=== PATIENT | male | born 1945 | race Caucasian/White ===

== ENCOUNTER 2017-11-08 07:33 | Inpatient (IN) | payer MEDICARE, OTHER ==
[2017-11-08 07:46] VITALS: BMI 25.8
--- NOTE | 2017-11-08 08:08 | PDOC ---
History of Present Illness <Bette Recio - Last Filed: 11/08/17 11:13> - History of Present Illness Initial Comments: patient is a 72 year old male, with a significant past medical history of rheumatoid arthritis, BL toe amputations, who presents to the emergency department complaining of worsening pain in chronic R plantar foot ulcer. Pt poor historian, states foot ulcer began a few months ago. Recently seen at [facility] a few weeks ago due to worsening pain and drainage from ulcer , treated with "two IV antibiotics" and discharged with improvement in symptoms. Cultures were taken, however pt unaware of results. Pt states over the last few days has noted similar symptoms, worsening pain in R plantar surface of foot and drainage in his sneakers. Pt denies any other infectious or neuro symptoms. Has seen shucker at [facility] in past, however states he doesnt know who and hasn't seen them in over a year. Pt does not take any immunomodulator medication currently. No hx of diabetes or vascular dz. patient denies chest pain, shortness of breath, headache or dizziness. Denies fever, chills, nausea, vomiting, diarrhea and constipation. Denies dysuria, frequency, urgency and hematuria. Allergies: None Past surgical history: BL toe amputations Social History: Former smoker; Denies alcohol, drug use; pt is undomiciled, lives at a long-term PMD: Unknown, follows at [facility] 11/08/17 08:03 11/08/17 08:13 <Romero Norris - Last Filed: 11/08/17 14:24> - General Stated Complaint: INFECTED TOE Past History <Bette Recio - Last Filed: 11/08/17 11:13> - Past Medical History COPD: No - Suicide/Smoking/Psychosocial Hx Smoking History: Former smoker Have you smoked in the past 12 months: No Information on smoking cessation initiated: No Hx Alcohol Use: No Drug/Substance Use Hx: No Substance Use Type: None <Romero Norris - Last Filed: 11/08/17 14:24> - Past Medical History Allergies/Adverse Reactions: Allergies Allergy/AdvReac Type Severity Reaction Status Date / Time No Allergy Information Allergy Verified 11/08/17 07:46 Available Review of Systems - Review of Systems Comments:: GENERAL/CONSTITUTIONAL: No fever or chills. No weakness. HEAD, EYES, EARS, NOSE AND THROAT: No change in vision. No ear pain or discharge. No sore throat. CARDIOVASCULAR: No chest pain or shortness of breath RESPIRATORY: No cough, wheezing, or hemoptysis. GASTROINTESTINAL: No nausea, vomiting, diarrhea or constipation. GENITOURINARY: No dysuria, frequency, or change in urination. MUSCULOSKELETAL: Pain in feet BL due to RA. Worsening pain in R sole of foot. No muscle swelling or pain. No neck or back pain. SKIN: No rash; ulcer in R foot NEUROLOGIC: No headache, vertigo, loss of consciousness, or change in strength/ sensation. ENDOCRINE: No increased thirst. No abnormal weight change HEMATOLOGIC/LYMPHATIC: No anemia, easy bleeding, or history of blood clots. ALLERGIC/IMMUNOLOGIC: No hives or skin allergy. 11/08/17 08:08 <Romero Norris - Last Filed: 11/08/17 14:24> *Physical Exam - Vital Signs Last Vital Signs Temp Pulse Resp BP Pulse Ox 97.4 F L 76 20 134/75 100 11/08/17 07:42 11/08/17 07:42 11/08/17 07:42 11/08/17 07:42 11/08/17 07:42 <Bette Recio - Last Filed: 11/08/17 11:13> - Vital Signs Last Vital Signs Temp Pulse Resp BP Pulse Ox 97.4 F L 76 20 134/75 100 11/08/17 07:42 11/08/17 07:42 11/08/17 07:42 11/08/17 07:42 11/08/17 07:42 - Physical Exam Comments: GENERAL: Elderly man, Awake, alert, and fully oriented, in no acute distress HEAD: No signs of trauma, normocephalic, atraumatic EYES: PERRLA, EOMI, sclera anicteric, conjunctiva clear ENT: Poor dentition. No oral lesions. Auricles normal inspection, hearing grossly normal, nares patent, oropharynx clear without exudates. Moist mucosa NECK: Normal ROM, supple, no lymphadenopathy, JVD, or masses LUNGS: Upper airway wheezing, mild diffuse rhonchi. No distress, speaks full sentences. HEART: Regular rate and rhythm, normal S1 and S2, no murmurs, rubs or gallops, peripheral pulses normal and equal bilaterally. ABDOMEN: Soft, nontender, normoactive bowel sounds. No guarding, no rebound. No masses EXTREMITIES : R 3x4cm plantar foot ulcer with no noted drainage or purulence, trace marginal erythema, TTP at medial margin. BL pain in plantar surfaces of feet. Complete toe amputation BL. Good pulses, no edema, preserved sensation. NEUROLOGICAL: Cranial nerves II through XII grossly intact. Normal speech, no focal sensorimotor deficits SKIN: Warm, Dry, normal turgor; 11/08/17 08:09 <Romero Norris - Last Filed: 11/08/17 14:24> ED Treatment Course - LABORATORY CBC & Chemistry Diagram: 11/08/17 08:52 11/08/17 09:34 - ADDITIONAL ORDERS Additional order review: Laboratory Results 11/08/17 11/08/17 11/08/17 09:50 09:34 08:52 Sodium 138 Cancelled Potassium 4.2 Cancelled Chloride 103 Cancelled Carbon Dioxide 32 Cancelled Anion Gap 3 L Cancelled BUN 18 Cancelled Creatinine 0.6 L Cancelled Creat Clearance w eGFR > 60 Cancelled Random Glucose 81 Cancelled Calcium 7.8 L Cancelled Total Bilirubin 0.6 Cancelled AST 11 L Cancelled ALT 12 Cancelled Alkaline Phosphatase 67 Cancelled C-Reactive Protein 6.5 H Cancelled Total Protein 6.3 L Cancelled Albumin 3.0 L Cancelled 11/08/17 08:52 RBC 3.94 L MCV 90.7 MCHC 33.7 RDW 14.6 MPV 9.8 Neutrophils % No Result Required. Lymphocytes % No Result Required. - RADIOLOGY Radiology Studies Ordered: Category Date Time Status CHEST PA & LAT [RAD] Stat Radiology 11/08/17 08:34 Completed FOOT-RIGHT [RAD] Stat Radiology 11/08/17 08:34 Completed - Medications Given in the ED: ED Medications Discontinued Medications Generic Name Dose Route Start Last Admin Trade Name Freq PRN Reason Stop Dose Admin Piperacillin Sod/Tazobactam 50 mls @ 100 mls/hr 11/08/17 10:28 11/08/17 11:07 Sod 3.375 gm/ Dextrose IVPB 11/08/17 10:57 100 mls/hr ONCE ONE Administration Protocol <Bette Recio - Last Filed: 11/08/17 11:13> - LABORATORY CBC & Chemistry Diagram: 11/08/17 08:52 11/08/17 09:34 <Romero Norris - Last Filed: 11/08/17 14:24> Medical Decision Making - Medical Decision Making 72 year old male, with a significant past medical history of rheumatoid arthritis, BL toe amputations, who presents to the emergency department complaining of worsening pain in chronic R plantar foot ulcer. Pt no risk factors for poor wound healing. No fever or marked purulence/drainage from ulcer site. Ordered for CXR, foot XR, CBC, CMP, ESR, CRP. Pt CXR with suspicious infiltrate. Will send for cultures, lactate and empiric abx for HCAP. Will admit to hospitalist group. 11/08/17 10:29 <Romero Norris - Last Filed: 11/08/17 14:24> *DC/Admit/Observation/Transfer - Discharge Dispostion Decision to Admit order: Yes <Bette Recio - Last Filed: 11/08/17 11:13> - Discharge Dispostion Decision to Admit order: Yes <Romero Norris - Last Filed: 11/08/17 14:24> Diagnosis at time of Disposition: Foot ulcer, right Qualifiers: Non-pressure ulcer stage: limited to breakdown of skin Qualified Code(s): L97.511 - Non-pressure chronic ulcer of other part of right foot limited to breakdown of skin Pneumonia Qualifiers: Pneumonia type: due to unspecified organism Laterality: left Lung location: lower lobe of lung Qualified Code(s): J18.1 - Lobar pneumonia, unspecified organism - Discharge Dispostion Condition at time of disposition: Fair
--- NOTE | 2017-11-08 08:44 | PDOC ---
Attending Attestation - Resident Resident Name: Romero Norris - ED Attending Attestation I have performed the following: I have examined & evaluated the patient, The case was reviewed & discussed with the resident, I agree w/resident's findings & plan, Exceptions are as noted - Medical Decision Making 11/08/17 08:41 72 yo M with h/o RA, chronic right foot ulcer, bilat toe amputations here c/o worsening right foot pain, no drainage. no f/c on exam right foot with plantar ulcer 4 x 2 clean base, no drainage. no erythema. 2 + dp/ pt pulses. bilat wheeze bilat. plan neb. cxr r/o pna, xray foot, labs. reassess. . <Bette Recio - Last Filed: 11/08/17 08:40> - HPI HPI: 11/08/17 09:25 The patient is a 72 year old male, with a significant past medical history of rheumatoid arthritis, BL toe amputations, who presents to the emergency department complaining of a right foot ulcer for the past few months. He notes that he has been worked up at [facility] in regards to the wound, for which he received antibiotics and was discharged after improvement of symptoms. 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 The patient denies chest pain, shortness of breath, headache or dizziness. Denies fever, chills, nausea, vomiting, diarrhea and constipation. Denies dysuria, frequency, urgency and hematuria. Allergies: None reported Past surgical history: BIlateral toe amputation Social History: Former smoker. - Physicial Exam PE: 11/08/17 09:25 GENERAL: Awake, alert, and fully oriented, in no acute distress HEAD: No signs of trauma EYES: PERRLA, EOMI, sclera anicteric, conjunctiva clear ENT: Auricles normal inspection, nares patent. Moist mucosa NECK: Normal ROM, supple, no JVD, or masses LUNGS: (+) Roncherous and wheezing breath sounds. HEART: Regular rate and rhythm, normal S1 and S2, no murmurs, rubs or gallops ABDOMEN: Soft, nontender, normoactive bowel sounds. No guarding, no rebound. No masses EXTREMITIES: (+) Bilateral complete toe amputation. 2+ DP anf TP pulses. Normal range of motion, no edema. No clubbing or cyanosis. No cords, erythema, or tenderness NEUROLOGICAL: Alert and oriented x 3. Moves all extremities. Face is symmetric. SKIN: (+) 2cm by 1cm open wound on the plantar surface of right foot. No erythema or oozing. <Jimmie Gonzales - Last Filed: 11/08/17 09:26>
[2017-11-08 09:16] LABS: HEMATOCRIT 35.7 % (35.4-49); HEMOGLOBIN 12.1 GM/dL (11.7-16.9); MCH 30.6 pg (25.7-33.7); MCHC 33.7 g/dl (32.0-35.9); MEAN CELL VOLUME 90.7 fl (80-96); MEAN PLT VOLUME 9.8 fl (7.5-11.1); PLATELET COUNT 257 K/MM3 (134-434); RBC 3.94 M/mm3 (4.00-5.60); RDW 14.6 % (11.9-15.9); WHITE BLOOD COUNT 9.4 K/mm3 (4.0-10.0)
[2017-11-08] MEDS ORDERED: PIPERACILLIN/TAZOB 3.375 GM 3.375 GM in DEXTROSE 5%-WATER - 50 ML IVPB ONE (10:28)
[2017-11-08] MEDS ORDERED: VANCOMYCIN 1,000 MG in DEXTROSE 5%-WATER - 250 ML IVPB ONE (10:28)
[2017-11-08 10:32] LABS: ALK PHOS 67 U/L (45-117); ANION GAP 3 (8-16); BILIRUBIN,TOTAL 0.6 mg/dL (0.2-1.0); BLOOD UREA NITROGEN 18 mg/dL (7-18); CALCIUM 7.8 mg/dL (8.5-10.1); CHLORIDE 103 mmol/L (98-107); CO2 32 mmol/L (21-32); CREATININE 0.6 mg/dL (0.7-1.3); GLUCOSE,RANDOM 81 mg/dL (74-106); POTASSIUM 4.2 mmol/L (3.5-5.1); SGOT/AST 11 U/L (15-37); SGPT/ALT 12 U/L (12-78); SODIUM 138 mmol/L (136-145); TOT PROT 6.3 g/dl (6.4-8.2)
[2017-11-08] MEDS ORDERED: VANCOMYCIN 1 GRAM (PRE-DOCKED) 1,000 MG/250 ML BAG IVPB ONE (10:35)
[2017-11-08 11:07] LABS: ACANTHOCYTES 0; ANISOCYTOSIS 0; HELMET CELLS 0; HOWELL-JOLLY BODIES 0; MACROCYTOSIS 0; OVALOCYTE 0; PLATELET ESTIMATE NORMAL; ROULEAU 0; SICKELED CELLS 0; TARGET CELLS 0; TEAR DROP CELLS 0; TOXIC GRANULATION 0
--- NOTE | 2017-11-08 13:54 | CON.ID ---
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 Pt states his feet always hurt and he usually takes Tylenol 500mg TID for pain but [facility] in a [facility] [place] [facility]. Per ED record, pt was seen and treated at [facility] a few weeks ago, he was on abx and then discharged. He denies sob, fever, chills, n/v, cp, abdominal pain, DM hx and does not see anyone regularly for his wound. currently he mentions that he has been having lot of pain in the foot podiatry going to see the patient - History Source History Provided By: Patient, Medical Record Limitations to Obtaining History: Poor Historian - Alcohol/Substance Use Hx Alcohol Use: No - Smoking History Smoking history: Former smoker Have you smoked in the past 12 months: No Home Medications - Allergies Allergies/Adverse Reactions: Allergies Allergy/AdvReac Type Severity Reaction Status Date / Time Fish Containing Products Allergy Unknown Vomiting Verified 11/08/17 14:45 fish AdvReac Intermediate Vomiting Uncoded 11/08/17 14:45 Review of Systems - Review of Systems Constitutional: reports: No Symptoms Eyes: reports: No Symptoms HENT: reports: No Symptoms Neck: reports: No Symptoms Cardiovascular: reports: No Symptoms Respiratory: reports: No Symptoms Gastrointestinal: reports: No Symptoms Musculoskeletal: reports: No Symptoms Integumentary: reports: No Symptoms Neurological: reports: No Symptoms Endocrine: reports: No Symptoms Hematology/Lymphatic: reports: No Symptoms Psychiatric: reports: No Symptoms Physical Exam Vital Signs: Vital Signs Temperature 97.6 F 11/08/17 12:07 Pulse Rate 58 L 11/08/17 12:07 Respiratory Rate 16 11/08/17 12:07 Blood Pressure 115/54 11/08/17 12:07 O2 Sat by Pulse Oximetry (%) 98 11/08/17 12:07 Constitutional: Yes: Well Nourished, Calm, Mild Distress Eyes: Yes: Conjunctiva Clear HENT: Yes: Atraumatic, Normocephalic Neck: Yes: Supple Cardiovascular: Yes: Regular Rate and Rhythm Respiratory: Yes: Regular, Other (crackles) Gastrointestinal: Yes: Normal Bowel Sounds, Soft Musculoskeletal: Yes: WNL Extremities: Yes: WNL Wound/Incision: Yes: Open to air, Other (+) 2cm by 1cm open wound on the plantar surface of right foot. No erythema or oozing.) Neurological: Yes: Alert, Oriented Psychiatric: Yes: Alert, Oriented Labs: CBC, BMP 11/08/17 08:52 11/08/17 09:34 Imaging - Results Chest X-ray: Report Reviewed, Image Reviewed X-ray: Report Reviewed, Image Reviewed Assessment/Plan non healing ulcer of the rt foot weakness pain patient s wound is relatively clean plan will continue abx for now will deescalate to po in day or so await for podiatry final plan rest as per the team
[2017-11-08] MEDS ORDERED: HEPARIN NA (PORCINE) 5,000 UNITS/ML 1ML VIAL SQ SCH (14:00)
--- NOTE | 2017-11-08 14:11 | HP ---
Admitting History and Physical - Admission Chief Complaint: pain History of Present Illness: This is a 72 year old male with pmhx of RA, bilateral complete toe amputation, bronchitis, hard of hearing and legally blind, presented to the ED with increased pain to his chronic R planter ulcer. Pt states his feet always hurt and he usually takes Tylenol 500mg TID for pain but [facility]'t [facility]. PT has been living in a homeless [facility]. Per ED record, pt was seen and treated at [facility] a few weeks ago, he was on abx and then discharged. He denies sob, fever, chills, n/v, cp, abdominal pain, DM hx and does not see anyone regularly for his wound. History Source: Patient Limitations to Obtaining History: No Limitations, Poor Historian - Past Medical History Rheumatology: Yes: Rheumatoid Arthritis - Past Surgical History Additional Past Surgical History: bilateral complete toes amputation - Smoking History Smoking history: Former smoker Have you smoked in the past 12 months: No - Alcohol/Substance Use Hx Alcohol Use: No - Social History ADL: Independent Home Medications - Allergies Allergies/Adverse Reactions: Allergies Allergy/AdvReac Type Severity Reaction Status Date / Time Fish Containing Products Allergy Unknown Vomiting Verified 11/08/17 14:45 fish AdvReac Intermediate Vomiting Uncoded 11/08/17 14:45 Review of Systems - Review of Systems Constitutional: reports: No Symptoms Eyes: reports: No Symptoms HENT: reports: No Symptoms Neck: reports: No Symptoms Cardiovascular: reports: No Symptoms Respiratory: reports: Cough Gastrointestinal: reports: No Symptoms Genitourinary: reports: No Symptoms Musculoskeletal: reports: No Symptoms Integumentary: reports: No Symptoms Neurological: reports: No Symptoms Endocrine: reports: No Symptoms Hematology/Lymphatic: reports: No Symptoms Psychiatric: reports: No Symptoms Physical Examination Vital Signs: Vital Signs Temperature 97.6 F 11/08/17 12:07 Pulse Rate 58 L 11/08/17 12:07 Respiratory Rate 16 11/08/17 12:07 Blood Pressure 115/54 11/08/17 12:07 O2 Sat by Pulse Oximetry (%) 98 11/08/17 12:07 Constitutional: Yes: No Distress Eyes: Yes: Conjunctiva Clear HENT: Yes: Other (poor dentition,) Cardiovascular: Yes: Regular Rate and Rhythm, S1, S2 Respiratory: Yes: Rhonchi, Other (left base rhonchi) Gastrointestinal: Yes: Normal Bowel Sounds, Soft Extremities: Yes: WNL Edema: Yes Edema: RLE: 1+ Peripheral Pulses WNL: Yes Integumentary: Yes: Other (R foot planter wound) Wound/Incision: Yes: Open to air Neurological: Yes: Alert, Oriented, Cran Nerves II-XII Intact, Other ...Motor Strength: WNL Psychiatric: Yes: Alert, Oriented Labs: CBC, BMP 11/08/17 08:52 11/08/17 09:34 Imaging - Results Chest X-ray: Report Reviewed (early left base infiltrate) X-ray: Report Reviewed Problem List - Problems (1) Foot ulcer, right Code(s): L97.519 - NON-PRS CHRONIC ULCER OTH PRT RIGHT FOOT W UNSP SEVERITY Qualifiers: Non-pressure ulcer stage: limited to breakdown of skin Qualified Code(s): L97.511 - Non-pressure chronic ulcer of other part of right foot limited to breakdown of skin (2) Pneumonia Code(s): J18.9 - PNEUMONIA, UNSPECIFIED ORGANISM Qualifiers: Pneumonia type: due to unspecified organism Laterality: left Lung location: lower lobe of lung Qualified Code(s): J18.1 - Lobar pneumonia, unspecified organism Assessment/Plan Assessment: 72 year old male with pmhx RA presented with worsening pain to R plantar ulcer and leg Plan: 1. Acute on chronic R planter wound infection - Increased pain and swelling - ESR and CRP elevated however pt w RA hx - Vanco zosyn given in ED - Started on Unysan - Podiatry consulted 2. HCAP - Unysan as above 3. RA - No home meds, takes tylenol 4. DVT - Heparin sq Visit type - Emergency Visit Emergency Visit: Yes ED Registration Date: 11/08/17 Care time: The patient presented to the Emergency Department on the above date and was hospitalized for further evaluation of their emergent condition. - New Patient This patient is new to me today: Yes Date on this admission: 11/08/17 - Critical Care Critical Care patient: No Hospitalist Screening - Colonoscopy Questionnaire Colonoscopy Questionnaire: Colonoscopy Questionnaire - Patient: 50 - 75 years old and never had a screening colonoscopy: Unknown History of colon or rectal polyps, or CA: Unknown History of IBD, Crohn's disease or UC: Unknown History of abdominal radiation therapy as a child: Unknown - Relative: 1 with colon or rectal CA, or polyps at age 60 or younger: Unknown Colon or rectal CA diagnosed at age 45 or younger: Unknown Multiple relatives with colon or rectal CA: Unknown - Outcome: Screening Result: Negative Screen
[2017-11-08] MEDS ORDERED: AMPICILLIN NA/SULBACTAM NA 3 GM in SODIUM CHLORIDE 100 ML IVPB SCH (14:15)
[2017-11-08] MEDS: HEPARIN NA (PORCINE) 5,000 UNITS/ML 1ML VIAL SQ SCH ×2 (15:07→21:54)
--- NOTE | 2017-11-08 16:52 | PN ---
Progress Note (short form) - Note Progress Note: PT presents for Podiatry Consult for right plantar wound PT was admitted to [facility] pain to both feet and pneumonia Presents for Podiatry consult for plantar wound to his right foot s/p TMA years ago Pt states was supposed to f/u with Podiatry and never did SUKUMAR: Palpable pedal pulses NVS decreased Wound to mid arch Superficial in nature Does not probe deep No undermining No signs of ascending cellulitis Negative adenopathy Tender on palpation TMA healed Impression: Ulcer right foot Neuropathy Plan: Will obtain xrays Local wound care Will follow Thank you for courtesy of this consult
--- NOTE | 2017-11-08 16:59 | PN ---
Progress Note (short form) - Note Progress Note: Addendum: Foot xrays depict of some blastic changes of metarasal Consider further diagnostic testing to assess for osteomyelits
[2017-11-08] MEDS ORDERED: PT OWN MED DRAWER 7, Y5N ONE (17:30)
[2017-11-08] MEDS: AMPICILLIN NA/SULBACTAM NA 3 GM in SODIUM CHLORIDE 100 ML IVPB SCH (18:00)
[2017-11-09] MEDS ORDERED: PT OWN MED DRAWER 7, Y5N ONE ×3 (01:14→17:48)
[2017-11-09] MEDS: AMPICILLIN NA/SULBACTAM NA 3 GM in SODIUM CHLORIDE 100 ML IVPB SCH ×3 (01:18→18:10)
[2017-11-09] MEDS: HEPARIN NA (PORCINE) 5,000 UNITS/ML 1ML VIAL SQ SCH ×3 (05:25→21:58)
[2017-11-09 07:48] LABS: BASO % 1.2 % (0-2.0); EOS % 3.1 % (0-4.5); HEMATOCRIT 40.3 % (35.4-49); HEMOGLOBIN 13.3 GM/dL (11.7-16.9); LYMPH % 21.4 % (8-40); MCH 30.1 pg (25.7-33.7); MEAN CELL VOLUME 91.1 fl (80-96); MEAN PLT VOLUME 9.3 fl (7.5-11.1); MONO % 12.3 % (3.8-10.2); PLATELET COUNT 293 K/MM3 (134-434); RBC 4.43 M/mm3 (4.00-5.60); RDW 14.9 % (11.9-15.9); WHITE BLOOD COUNT 8.2 K/mm3 (4.0-10.0)
[2017-11-09 08:31] LABS: ALBUMIN 3.1 g/dl (3.4-5.0); ANION GAP 6 (8-16); BLOOD UREA NITROGEN 15 mg/dL (7-18); CALCIUM 8.3 mg/dL (8.5-10.1); CHLORIDE 102 mmol/L (98-107); CO2 29 mmol/L (21-32); GLUCOSE,RANDOM 83 mg/dL (74-106); MAGNESIUM 2.7 mg/dL (1.8-2.4); POTASSIUM 4.2 mmol/L (3.5-5.1); SODIUM 137 mmol/L (136-145)
[2017-11-09 08:36] LABS: ALK PHOS 75 U/L (45-117); BILIRUBIN,TOTAL 0.8 mg/dL (0.2-1.0); CREATININE 0.7 mg/dL (0.7-1.3); PHOSPHOROUS 2.9 mg/dL (2.5-4.9); SGOT/AST 12 U/L (15-37); SGPT/ALT 13 U/L (12-78); TOT PROT 7.1 g/dl (6.4-8.2)
[2017-11-09] MEDS: ACETAMINOPHEN 325 MG TABLET (FP) PO PRN ×2 (11:05→18:17)
--- NOTE | 2017-11-09 11:17 | PN ---
Physical Exam: SUBJECTIVE: Patient seen and examined. Pt reports he is in pain, he wants tylenol, no sob or cough OBJECTIVE: Vital Signs Period Temp Pulse Resp BP Sys/Cancino Pulse Ox Last 24 Hr 97.2 F-98.6 F 55-72 16-20 100-129/54-71 98-98 PE Neuro: alert, awake, cn 2-12intact HEENT: TORRES MARTINEZ, poor dentition Pulm: L base rhonchi- improved CV: s1 s2 rrr no mrg Abd: s nt nd +bs Ext: R plantar wound slough, no mal odor, no erythema, RLE swelling improved Laboratory Results - last 24 hr 11/08/17 11/09/17 11/09/17 10:42 07:20 07:20 WBC 8.2 RBC 4.43 Hgb 13.3 Hct 40.3 MCV 91.1 MCH 30.1 MCHC 33.0 RDW 14.9 Plt Count 293 MPV 9.3 Neutrophils % 62.0 Lymphocytes % 21.4 Monocytes % 12.3 H Eosinophils % 3.1 Basophils % 1.2 Sodium 137 Potassium 4.2 Chloride 102 Carbon Dioxide 29 Anion Gap 6 L BUN 15 Creatinine 0.7 Creat Clearance w eGFR > 60 Random Glucose 83 Lactic Acid 1.3 Calcium 8.3 L Phosphorus 2.9 Magnesium 2.7 H Total Bilirubin 0.8 D AST 12 L ALT 13 Alkaline Phosphatase 75 Total Protein 7.1 Albumin 3.1 L Active Medications Generic Name Dose Route Start Last Admin Trade Name Freq PRN Reason Stop Dose Admin Acetaminophen 650 mg 11/08/17 16:23 11/09/17 11:05 Tylenol - PO 650 mg Q6H PRN Administration PAIN LEVEL 1-5 Heparin Sodium (Porcine) 5,000 unit 11/08/17 14:00 11/09/17 05:25 Heparin - SQ 5,000 unit TID ANNABELLA Administration Ampicillin Sodium/Sulbactam 100 mls @ 200 mls/hr 11/08/17 18:00 11/09/17 11: 05 Sodium 3 gm/ Sodium Chloride IVPB 200 mls/hr Q8H-IV ANNABELLA Administration Assessment: 72 year old male with pmhx RA presented with worsening pain to R plantar ulcer and leg Plan: 1. Acute on chronic R planter wound infection - No evidence of cellulitis - Continue Unysan - Local wound care per podiatry, obtain MRI r/o osteo - ID/podiatry following 2. HCAP - Unysan as above 3. RA - No home meds, takes tylenol 4. DVT - Heparin sq Problem List - Problems (1) Foot ulcer, right Code(s): L97.519 - NON-PRS CHRONIC ULCER OTH PRT RIGHT FOOT W UNSP SEVERITY Qualifiers: Non-pressure ulcer stage: limited to breakdown of skin Qualified Code(s): L97.511 - Non-pressure chronic ulcer of other part of right foot limited to breakdown of skin (2) Pneumonia Code(s): J18.9 - PNEUMONIA, UNSPECIFIED ORGANISM Qualifiers: Pneumonia type: due to unspecified organism Laterality: left Lung location: lower lobe of lung Qualified Code(s): J18.1 - Lobar pneumonia, unspecified organism Visit type - Emergency Visit Emergency Visit: Yes ED Registration Date: 11/08/17 Care time: The patient presented to the Emergency Department on the above date and was hospitalized for further evaluation of their emergent condition. - New Patient This patient is new to me today: No - Critical Care Critical Care patient: No
--- NOTE | 2017-11-09 11:35 | PN ---
Progress Note, Physician History of Present Illness: bernadette no issues podiatry wants mri pain main complaint - Current Medication List Current Medications: Active Medications Acetaminophen (Tylenol -) 650 mg PO Q6H PRN PRN Reason: PAIN LEVEL 1-5 Last Admin: 11/09/17 11:05 Dose: 650 mg Heparin Sodium (Porcine) (Heparin -) 5,000 unit SQ TID ANNABELLA Last Admin: 11/09/17 05:25 Dose: 5,000 unit Ampicillin Sodium/Sulbactam (Sodium 3 gm/ Sodium Chloride) 100 mls @ 200 mls/ hr IVPB Q8H-IV ANNABELLA Last Admin: 11/09/17 11:05 Dose: 200 mls/hr - Objective Vital Signs: Vital Signs Temperature 97.2 F L 11/09/17 05:50 Pulse Rate 55 L 11/09/17 05:50 Respiratory Rate 20 11/09/17 05:50 Blood Pressure 121/71 11/09/17 05:50 O2 Sat by Pulse Oximetry (%) 98 11/08/17 22:00 Constitutional: Yes: No Distress, Calm Cardiovascular: Yes: Regular Rate and Rhythm Respiratory: Yes: Regular, CTA Bilaterally Gastrointestinal: Yes: Normal Bowel Sounds, Soft Musculoskeletal: Yes: WNL Extremities: Yes: Other (amputation of toes on both legs non healing clean ulcer on the rt foot) Neurological: Yes: Alert, Oriented Psychiatric: Yes: Alert, Oriented Labs: CBC, BMP 11/09/17 07:20 11/09/17 07:20 Assessment/Plan non healing ulcer of the rt foot weakness pain patient s wound is relatively clean plan will continue abx for now will see what the mri shows then decide further plan rest continue current mgmt wound care
[2017-11-10] MEDS: ACETAMINOPHEN 325 MG TABLET (FP) PO PRN ×3 (00:15→19:21)
[2017-11-10] MEDS: AMPICILLIN NA/SULBACTAM NA 3 GM in SODIUM CHLORIDE 100 ML IVPB SCH ×2 (01:00→10:22)
[2017-11-10] MEDS: HEPARIN NA (PORCINE) 5,000 UNITS/ML 1ML VIAL SQ SCH ×3 (05:49→21:05)
[2017-11-10] MEDS ORDERED: PT OWN MED DRAWER 7, Y5N ONE (10:17)
--- NOTE | 2017-11-10 10:44 | PN ---
Progress Note (short form) - Note Progress Note: Podiatry F/U: Seen/evaluated at bedside, NAD. Pain improving with use of tylenol, denies F/V/ N/C/SOB/CP. Afebrile, VSS. SUKUMAR: R foot: pedal pulses palpable, TG wnl. There is a plantar arch chronic ulcer with mostly granular base, hyperkeratotic borders, mild fibrotic tissue, no deep probing, no exposed bone, no purulence, no fluctuance, no ascending cellulitis, no signs of active infection. Mild tenderness to palpation. WBC: 8.2 R foot XR: ?blastic changes first metatarsal R foot MRI: report pending Imp: 72 year old M with chronic R plantar arch ulcer 1. IV abx 2. MRI report pending 3. Local wound care. Rx santyl daily to R foot. 4. No surgical intervention. Patient would benefit quite well from f/u at wound healing center. Should come next 11/18/17, for f/u. [phone]. Samir Bermudez DPM
--- NOTE | 2017-11-10 14:56 | PN ---
Progress Note (short form) - Note Progress Note: Subjective: The patient was seen and examined at the bedside, he has no complaints at this time. He is asking for tea Current Medications Generic Name Dose Route Start Last Admin Trade Name Hawa PRN Reason Stop Dose Admin Acetaminophen 650 mg 11/08/17 16:23 11/10/17 12:49 Tylenol - PO 650 mg Q6H PRN Administration PAIN LEVEL 1-5 Collagenase 1 applic 11/11/17 10:00 Santyl - TP DAILY ANNABELLA Heparin Sodium (Porcine) 5,000 unit 11/08/17 14:00 11/10/17 14:33 Heparin - SQ 5,000 unit TID ANNABELLA Administration Ampicillin Sodium/Sulbactam 100 mls @ 200 mls/hr 11/08/17 18:00 11/10/17 10: 22 Sodium 3 gm/ Sodium Chloride IVPB 200 mls/hr Q8H-IV ANNABELLA Administration Objective: Vital Signs Period Temp Pulse Resp BP Sys/Cancino Pulse Ox Last 24 Hr 97.8 F-98.7 F 51-68 20-20 105-125/60-68 99 Physical Exam: General: NAD Lungs: CTA bilaterally Heart: RRR, S1S2 Abd: Soft, non-tender, non-distended. Normoactive bowel sounds Ext: Right foot dressing (patient refused to have it unwrapped) CBCD WBC 8.2 K/mm3 (4.0-10.0) 11/09/17 07:20 RBC 4.43 M/mm3 (4.00-5.60) 11/09/17 07:20 Hgb 13.3 GM/dL (11.7-16.9) 11/09/17 07:20 Hct 40.3 % (35.4-49) 11/09/17 07:20 MCV 91.1 fl (80-96) 11/09/17 07:20 MCHC 33.0 g/dl (32.0-35.9) 11/09/17 07:20 RDW 14.9 % (11.9-15.9) 11/09/17 07:20 Plt Count 293 K/MM3 (134-434) 11/09/17 07:20 MPV 9.3 fl (7.5-11.1) 11/09/17 07:20 CMP Sodium 137 mmol/L (136-145) 11/09/17 07:20 Potassium 4.2 mmol/L (3.5-5.1) 11/09/17 07:20 Chloride 102 mmol/L (98-107) 11/09/17 07:20 Carbon Dioxide 29 mmol/L (21-32) 11/09/17 07:20 Anion Gap 6 (8-16) L 11/09/17 07:20 BUN 15 mg/dL (7-18) 11/09/17 07:20 Creatinine 0.7 mg/dL (0.7-1.3) 11/09/17 07:20 Creat Clearance w eGFR > 60 (>60) 11/09/17 07:20 Random Glucose 83 mg/dL (74-106) 11/09/17 07:20 Calcium 8.3 mg/dL (8.5-10.1) L 11/09/17 07:20 Total Bilirubin 0.8 mg/dL (0.2-1.0) D 11/09/17 07:20 AST 12 U/L (15-37) L 11/09/17 07:20 ALT 13 U/L (12-78) 11/09/17 07:20 Alkaline Phosphatase 75 U/L (45-117) 11/09/17 07:20 Total Protein 7.1 g/dl (6.4-8.2) 11/09/17 07:20 Albumin 3.1 g/dl (3.4-5.0) L 11/09/17 07:20 Microbiology 11/08/17 10:44 Blood - Peripheral Venous Blood Culture - Preliminary NO GROWTH OBTAINED AFTER 48 HOURS, INCUBATION TO CONTINUE FOR 3 DAYS. 11/08/17 10:44 Blood - Peripheral Venous Blood Culture - Preliminary NO GROWTH OBTAINED AFTER 48 HOURS, INCUBATION TO CONTINUE FOR 3 DAYS. Assessment: This is a 72 year old male with PMHx of RA who presented to the ED with right plantar ulcer and leg pain Plan: 1) Acute on chronic right plantar wound infection - Continue Unasyn - Santyl daily dressing to right foot - No surgical intervention at this time - MRI right foot with no osteo - Appreciate podiatry consult - Appreciate ID consult 2) RA - Continue Acetaminophen 3) F/E/N: - Regular diet - Monitor electrolytes 4) Prophylaxis: - Heparin 5,000u sq tid - PT: walked 75 ft 5) Dispo: - Requires continued inpatient care CODE STATUS: FULL CODE Visit type - Emergency Visit Emergency Visit: Yes ED Registration Date: 11/08/17 Care time: The patient presented to the Emergency Department on the above date and was hospitalized for further evaluation of their emergent condition. - New Patient This patient is new to me today: Yes Date on this admission: 11/10/17 - Critical Care Critical Care patient: No
--- NOTE | 2017-11-10 15:14 | PN ---
Progress Note, Physician History of Present Illness: patient doing well no issues wound clean and dry podiatry note noted pain main issue - Current Medication List Current Medications: Active Medications Acetaminophen (Tylenol -) 650 mg PO Q6H PRN PRN Reason: PAIN LEVEL 1-5 Last Admin: 11/10/17 12:49 Dose: 650 mg Collagenase (Santyl -) 1 applic TP DAILY [facility] Heparin Sodium (Porcine) (Heparin -) 5,000 unit SQ TID ANNABELLA Last Admin: 11/10/17 14:33 Dose: 5,000 unit - Objective Vital Signs: Vital Signs Temperature 97.8 F 11/10/17 06:00 Pulse Rate 51 L 11/10/17 06:00 Respiratory Rate 20 11/09/17 21:00 Blood Pressure 125/64 11/10/17 06:00 O2 Sat by Pulse Oximetry (%) 99 11/09/17 21:00 Constitutional: Yes: No Distress, Calm Cardiovascular: Yes: Regular Rate and Rhythm Respiratory: Yes: Regular, CTA Bilaterally Gastrointestinal: Yes: Normal Bowel Sounds, Soft Musculoskeletal: Yes: Other Extremities: Yes: Other Wound/Incision: Yes: Clean/Dry Neurological: Yes: Alert, Oriented Psychiatric: Yes: Alert, Oriented Labs: CBC, BMP 11/09/17 07:20 11/09/17 07:20 Assessment/Plan non healing ulcer of the rt foot weakness pain patient s wound is relatively clean plan will stop iv abx will switch to oral i think we can give oral augmentin for 3-4 days more wound care rest as per the team
[2017-11-10] MEDS: AMOX TR/POT CLAV 500MG/125MG TABLETS (FP) PO SCH (17:52)
[2017-11-11] MEDS: ACETAMINOPHEN 325 MG TABLET (FP) PO PRN ×3 (00:57→20:29)
[2017-11-11] MEDS: HEPARIN NA (PORCINE) 5,000 UNITS/ML 1ML VIAL SQ SCH ×3 (05:35→21:18)
[2017-11-11] MEDS: AMOX TR/POT CLAV 500MG/125MG TABLETS (FP) PO SCH ×2 (07:34→17:23)
[2017-11-11] MEDS: COLLAGENASE CLOSTRIDIUM HIST. 30 GRAMS TUBE TP SCH (10:28)
--- NOTE | 2017-11-11 12:12 | DS ---
Physical Examination Vital Signs: Vital Signs Temperature 98.0 F 11/11/17 10:00 Pulse Rate 64 11/11/17 10:00 Respiratory Rate 18 11/11/17 10:00 Blood Pressure 114/60 11/11/17 10:00 O2 Sat by Pulse Oximetry (%) 99 11/10/17 20:10 Labs: CBC, BMP 11/09/17 07:20 11/09/17 07:20 Discharge Summary Reason For Visit: ULCER OF RIGHT FOOT Current Active Problems Foot ulcer, right (Acute) Pneumonia (Acute) Condition: Improved - Instructions Diet, Activity, Other Instructions: Please return to the ED with new, persistent, or worsening symptoms. Please follow-up with providers as indicated. Wound care: Apply santyl daily to your right foot and cover with gauze dressing. Referrals: Matthew Gomes MD [Staff Physician] - (Please follow-up with infectious disease within 3-5 days for evaluation to see if any further antibiotics are needed. ) Mark Bermudez MD [Staff Physician] - (Please follow-up with Dr. Bermudez in the wound clinic at [facility] on 11/18/17. If you have any questions, please call [phone].) Jonathan Masters MD [Staff Physician] - 1 Week Disposition: [facility] FACILITY - Home Medications Comprehensive Discharge Medication List: Ambulatory Orders Acetaminophen [Tylenol .Regular Strength -] 650 mg PO Q6H PRN tablet 11/11/17 Amox-Tr/K Cl [Augmentin 500-125mg Tablet -] 1 tab PO BID@0800,1730 #6 tablet Collagenase Clostridium Hist. [Santyl -] 1 applic TP DAILY #1 tube 11/11/17
--- NOTE | 2017-11-11 14:33 | PN ---
Progress Note, Physician History of Present Illness: stable no new issues - Current Medication List Current Medications: Active Medications Acetaminophen (Tylenol -) 650 mg PO Q6H PRN PRN Reason: PAIN LEVEL 1-5 Last Admin: 11/11/17 07:34 Dose: 650 mg Amoxicillin/Clavulanate Potassium (Augmentin - 500mg Tablet) 1 tab PO BID@0800, 1730 [facility] Last Admin: 11/11/17 07:34 Dose: 1 tab Collagenase (Santyl -) 1 applic TP DAILY [facility] Last Admin: 11/11/17 10:28 Dose: Not Given Heparin Sodium (Porcine) (Heparin -) 5,000 unit SQ TID [facility] Last Admin: 11/11/17 14:29 Dose: 5,000 unit - Objective Vital Signs: Vital Signs Temperature 98.6 F 11/11/17 14:00 Pulse Rate 62 11/11/17 14:00 Respiratory Rate 17 11/11/17 14:00 Blood Pressure 110/56 11/11/17 14:00 O2 Sat by Pulse Oximetry (%) 99 11/10/17 20:10 Constitutional: Yes: No Distress, Calm Cardiovascular: Yes: Regular Rate and Rhythm Respiratory: Yes: Regular, CTA Bilaterally Gastrointestinal: Yes: Normal Bowel Sounds, Soft Musculoskeletal: Yes: WNL Extremities: Yes: WNL Neurological: Yes: Alert, Oriented Psychiatric: Yes: Alert, Oriented Labs: CBC, BMP 11/09/17 07:20 11/09/17 07:20 Assessment/Plan non healing ulcer of the rt foot weakness pain patient s wound is relatively clean plan continue oral abx for another 3 days wound care follow up rest as per the team
--- NOTE | 2017-11-11 18:38 | PN ---
Progress Note (short form) - Note Progress Note: Podiatry Brief Note: R foot chronic ulcer, strong granular base, no probing to bone, no cellulitis, no signs of infection. MRI reviewed, demonstrates no bone marrow edema suggestive of osteomyelitis. Can continue local wound care with santyl and needs f/u in wound healing center. No sx intervention. Samir Bermudez DPM
[2017-11-12] MEDS: ACETAMINOPHEN 325 MG TABLET (FP) PO PRN ×2 (03:36→09:11)
[2017-11-12] MEDS: HEPARIN NA (PORCINE) 5,000 UNITS/ML 1ML VIAL SQ SCH ×2 (06:38→14:15)
[2017-11-12] MEDS: AMOX TR/POT CLAV 500MG/125MG TABLETS (FP) PO SCH (08:06)
[2017-11-12] MEDS: COLLAGENASE CLOSTRIDIUM HIST. 30 GRAMS TUBE TP SCH (09:11)
--- NOTE | 2017-11-12 13:25 | PN ---
Progress Note, Physician History of Present Illness: stable no new issues - Current Medication List Current Medications: Active Medications Acetaminophen (Tylenol -) 650 mg PO Q6H PRN PRN Reason: PAIN LEVEL 1-5 Last Admin: 11/12/17 09:11 Dose: 650 mg Amoxicillin/Clavulanate Potassium (Augmentin - 500mg Tablet) 1 tab PO BID@0800, 1730 [facility] Last Admin: 11/12/17 08:06 Dose: 1 tab Collagenase (Santyl -) 1 applic TP DAILY [facility] Last Admin: 11/12/17 09:11 Dose: Not Given Heparin Sodium (Porcine) (Heparin -) 5,000 unit SQ TID [facility] Last Admin: 11/12/17 06:38 Dose: 5,000 unit - Objective Vital Signs: Vital Signs Temperature 97.9 F 11/12/17 10:00 Pulse Rate 64 11/12/17 10:00 Respiratory Rate 20 11/12/17 10:00 Blood Pressure 126/66 11/12/17 10:00 O2 Sat by Pulse Oximetry (%) 98 11/12/17 09:00 Constitutional: Yes: No Distress, Calm Cardiovascular: Yes: Regular Rate and Rhythm Respiratory: Yes: Regular, CTA Bilaterally Gastrointestinal: Yes: Normal Bowel Sounds, Soft Musculoskeletal: Yes: WNL Extremities: Yes: WNL Neurological: Yes: Alert, Oriented Psychiatric: Yes: Alert Labs: CBC, BMP 11/09/17 07:20 11/09/17 07:20 Assessment/Plan non healing ulcer of the rt foot weakness pain patient s wound is relatively clean plan continue oral abx for another 3 days wound care follow up rest as per the team
[2017-11-12 14:07] VITALS: BP 104/47; PULSE 66; TEMP 97.4
== END 2017-11-12 15:03 | DRG 592 ==
LOC: JER 07:33 → JERBED 11:14 → J6S 12:38
PROVIDERS: ADMIT Internal Medicine; ATTEND Registered Nurse
DX: L97.511 Non-pressure chronic ulcer of other part of right foot limited to breakdown of skin (principal); J18.9 Pneumonia, unspecified organism; M06.9 Rheumatoid arthritis, unspecified; Z87.891 Personal history of nicotine dependence; Z89.422 Acquired absence of other left toe(s); Z89.421 Acquired absence of other right toe(s); H54.8 Legal blindness, as defined in USA; Y95 Nosocomial condition
CPT/HCPCS: 36415; 71046-TC-FY; 73630-TC-RT-FY; 73718-TC; 80053; 83605; 83735; 84100; 85025; 85651; 86140; 87040; 97116-GP; 99283-25; J1644

== ENCOUNTER 2020-07-29 18:21 | Inpatient (IN) | payer MEDICARE, OTHER ==
[2020-07-29 19:40] LABS: BASO % 1.1 % (0-2.0); HEMATOCRIT 39.8 % (35.4-49); HEMOGLOBIN 12.9 GM/dL (11.7-16.9); LYMPH % 2.9 % (8-40); MCH 29.3 pg (25.7-33.7); MCHC 32.4 g/dl (32.0-35.9); MEAN CELL VOLUME 90.6 fl (80-96); MEAN PLT VOLUME 9.5 fl (7.5-11.1); MONO % 11.7 % (3.8-10.2); NEUT % 84.3 % (42.8-82.8); PLATELET COUNT 423 K/MM3 (134-434); RBC 4.39 M/mm3 (4.00-5.60); RDW 15.3 % (11.9-15.9); WHITE BLOOD COUNT 17.5 K/mm3 (4.0-10.0)
[2020-07-29 19:54] LABS: INR 1.24 (0.83-1.09); PROTHROMBIN TIME (PATIENT) 14.9 SEC (9.7-13.0)
[2020-07-29 19:56] LABS: ACTIVATED PTT 35.4 SECONDS (25.2-36.5)
[2020-07-29 20:27] LABS: POTASSIUM 4.8 mmol/L (3.5-5.1)
[2020-07-29 20:28] LABS: ALBUMIN 2.5 g/dl (3.4-5.0); BLOOD UREA NITROGEN 51.1 mg/dL (7-18); CALCIUM 9.7 mg/dL (8.5-10.1)
[2020-07-29 20:31] LABS: BILIRUBIN,DIRECT 0.2 mg/dL (0.0-0.2); CREATININE 1.8 mg/dL (0.55-1.3)
[2020-07-29 20:32] LABS: TOT PROT 7.4 g/dl (6.4-8.2)
[2020-07-29 20:33] LABS: BILIRUBIN,TOTAL 0.3 mg/dL (0.2-1)
[2020-07-29] MEDS ORDERED: LACTATED RINGERS SOLUTION 1000 ML INFUS.BAG IV ONE ×2 (20:39→23:45)
[2020-07-29] MEDS ORDERED: PIPERACILLIN/TAZOB 4.5 GM 4.5 GM in DEXTROSE 5%-WATER 100 ML IVPB ONE (20:46)
[2020-07-29] MEDS ORDERED: VANCOMYCIN 1 GM in D5W (PRE-DOCKED) 1,000 MG/250 ML IVPB ONE (20:49)
[2020-07-29] MEDS ORDERED: PIPERACILLIN/TAZOB 4.5 GM 4.5 GM/100 ML BAG IVPB ONE (20:58)
[2020-07-29] MEDS ORDERED: VANCOMYCIN 1 GRAM (PRE-DOCKED) 1,000 MG/250 ML BAG IVPB ONE (21:37)
[2020-07-29] MEDS ORDERED: RAPID SEQUENCE INTUBATION KIT NR ONE (21:42)
[2020-07-29 22:05] LABS: EPI CELLS 16 /uL (0-25.1); HYALINE CASTS 7 /uL (0-3.1); URINE APPEARANCE CLEAR; URINE BACTERIA 19 /uL (0-1359); URINE BILIRUBIN NEGATIVE (NEGATIVE); URINE COLOR DK YELLOW; URINE GLUCOSE (UA) NEGATIVE (NEGATIVE); URINE KETONE TRACE (NEGATIVE); URINE LEUK ESTERASE NEGATIVE (NEGATIVE); URINE NITRITE NEGATIVE (NEGATIVE); URINE PROTEIN 1+ (NEGATIVE); URINE RBC 27 /uL (0-23.9); URINE WBC 11 /uL (0-25.8)
[2020-07-29 23:06] LABS: MAGNESIUM 2.9 mg/dL (1.8-2.4)
[2020-07-29] MEDS ORDERED: PROPOFOL 200 MG/20 ML VIAL IVPUSH ONE (23:19)
[2020-07-29] MEDS ORDERED: HYDROmorphone HCl 2 MG/ML VIAL ONE (23:42)
[2020-07-29] MEDS ORDERED: SODIUM CHLORIDE 1,000 ML IV SCH (23:45)
[2020-07-30] MEDS ORDERED: VASOPRESSIN 20 UNITS/ML VIAL IV ONE ×2 (00:03→00:06)
[2020-07-30 02:26] LABS: ARTERIAL BLD GAS O2 SATURATION 99.7 mmHg (95-98); ARTERIAL BLOOD GAS BASE EXCESS 1.2 mmol/L (-2-2); ARTERIAL BLOOD GAS PO2 321.7 mmHg (80-100); ARTERIAL BLOOD GAS pH 7.343 (7.350-7.450)
[2020-07-30 02:27] LABS: ALLENS TEST POSITIVE; VENT MODE A/C
[2020-07-30 02:28] LABS: VENT RATE 18
[2020-07-30] MEDS: HYDROmorphone HCl 2 MG/ML VIAL IVPUSH PRN ×2 (05:10)
[2020-07-30] MEDS ORDERED: LACTATED RINGERS SOLUTION 1,000 ML/1,000 ML INFUS.BAG IV SCH (05:15)
[2020-07-30] MEDS: VASOPRESSIN 40 UNITS in SODIUM CHLORIDE 98 ML IVPB SCH (05:15)
[2020-07-30 06:56] LABS: BASO % 0.4 % (0-2.0); EOS % 0.1 % (0-4.5); HEMATOCRIT 37.2 % (35.4-49); HEMOGLOBIN 11.9 GM/dL (11.7-16.9); LYMPH % 10.3 % (8-40); MCH 29.3 pg (25.7-33.7); MCHC 32.1 g/dl (32.0-35.9); MEAN CELL VOLUME 91.2 fl (80-96); MEAN PLT VOLUME 9.7 fl (7.5-11.1); MONO % 8.2 % (3.8-10.2); PLATELET COUNT 387 K/MM3 (134-434); RBC 4.08 M/mm3 (4.00-5.60); RDW 15.5 % (11.9-15.9); WHITE BLOOD COUNT 16.5 K/mm3 (4.0-10.0)
[2020-07-30 07:03] LABS: INR 1.11 (0.83-1.09); PROTHROMBIN TIME (PATIENT) 13.6 SEC (9.7-13.0)
[2020-07-30 07:04] LABS: ACTIVATED PTT 33.9 SECONDS (25.2-36.5)
[2020-07-30 07:15] LABS: POTASSIUM 4.9 mmol/L (3.5-5.1)
[2020-07-30 07:17] LABS: CALCIUM 8.8 mg/dL (8.5-10.1)
[2020-07-30 07:18] LABS: ALBUMIN 1.9 g/dl (3.4-5.0); BLOOD UREA NITROGEN 47.4 mg/dL (7-18); MAGNESIUM 2.3 mg/dL (1.8-2.4)
[2020-07-30 07:21] LABS: CREATININE 1.2 mg/dL (0.55-1.3); PHOSPHOROUS 5.6 mg/dL (2.5-4.9)
[2020-07-30 07:23] LABS: BILIRUBIN,TOTAL 0.5 mg/dL (0.2-1)
[2020-07-30] MEDS ORDERED: levETIRAcetam 500 MG/5 ML INJECTION VIAL IVPB ONE (08:22)
[2020-07-30] MEDS ORDERED: PIPERACILLIN/TAZOBACTAM 4.5 GM VIAL IVPB ONE ×2 (09:20→16:32)
[2020-07-30] MEDS ORDERED: DEXTROSE 5%-WATER 100 ML IVPB ONE ×2 (09:20→16:32)
[2020-07-30] MEDS: PROPOFOL 1,000,000 MCG/100 ML VIAL IVPB SCH ×3 (09:27→21:02)
[2020-07-30] MEDS: SODIUM CHLORIDE 1,000 ML IV SCH ×2 (09:28→21:03)
[2020-07-30] MEDS: PIPERACILLIN/TAZOB 4.5 GM 4.5 GM in DEXTROSE 5%-WATER 100 ML IVPB SCH ×2 (09:29→17:31)
[2020-07-30] MEDS: MUPIROCIN 2% TOPICAL OINTMENT FOR DECOLONIZATION NS SCH ×2 (09:35→21:02)
[2020-07-30] MEDS ORDERED: HEPARIN NA (PORCINE) 5,000 UNITS/ML 1ML VIAL SQ SCH (10:00)
[2020-07-30] MEDS ORDERED: VANCOMYCIN 1 GM in D5W (PRE-DOCKED) 1,000 MG/250 ML IVPB SCH (10:00)
[2020-07-30] MEDS ORDERED: PIPERACILLIN/TAZOB 4.5 GM 4.5 GM in DEXTROSE 5%-WATER 100 ML IVPB SCH (10:00)
[2020-07-30] MEDS ORDERED: VANCOMYCIN 1 GRAM (PRE-DOCKED) 1,000 MG/250 ML BAG IVPB SCH (10:00)
[2020-07-30] MEDS ORDERED: PT OWN MED DRAWER 7, Y5N ONE ×3 (12:46→20:53)
[2020-07-30 20:29] LABS: BF WBC & OTHER NUCLEATED CELLS 1946 /mm3
[2020-07-30 20:52] LABS: BODY FLUID MACROPHAGES 2 %; BODY FLUID MESOTHELIAL 5 %; BODY FLUID MONOCYTE 9 %
[2020-07-30] MEDS: VANCOMYCIN/WATER BAGS 1,250 MG/250 ML BAG IVPB SCH (21:01)
[2020-07-30] MEDS: levETIRAcetam 500 MG/5 ML INJECTION VIAL IVPB SCH (21:01)
[2020-07-30] MEDS: CHLORHEXIDINE GLUCONATE 4% CLEANSER FOR DECOLONIZATION TP SCH (21:01)
[2020-07-30] MEDS: LORazepam 2 MG/ML SDV VIAL IVPUSH PRN (21:02)
[2020-07-31] MEDS ORDERED: PIPERACILLIN/TAZOBACTAM 4.5 GM VIAL IVPB ONE ×3 (02:49→18:17)
[2020-07-31] MEDS ORDERED: DEXTROSE 5%-WATER 100 ML IVPB ONE ×3 (02:50→18:17)
[2020-07-31] MEDS: VASOPRESSIN 40 UNITS in SODIUM CHLORIDE 98 ML IVPB SCH (02:53)
[2020-07-31] MEDS: PIPERACILLIN/TAZOB 4.5 GM 4.5 GM in DEXTROSE 5%-WATER 100 ML IVPB SCH ×3 (02:54→18:19)
[2020-07-31] MEDS: PROPOFOL 1,000,000 MCG/100 ML VIAL IVPB SCH (05:24)
[2020-07-31 06:59] LABS: BASO % 0.4 % (0-2.0); EOS % 0.5 % (0-4.5); HEMATOCRIT 30.7 % (35.4-49); HEMOGLOBIN 9.9 GM/dL (11.7-16.9); LYMPH % 6.6 % (8-40); MCHC 32.2 g/dl (32.0-35.9); MEAN CELL VOLUME 90.1 fl (80-96); MEAN PLT VOLUME 9.7 fl (7.5-11.1); MONO % 6.7 % (3.8-10.2); NEUT % 85.8 % (42.8-82.8); PLATELET COUNT 349 K/MM3 (134-434); RBC 3.41 M/mm3 (4.00-5.60); WHITE BLOOD COUNT 16.7 K/mm3 (4.0-10.0)
[2020-07-31 07:18] LABS: ALBUMIN 1.6 g/dl (3.4-5.0); BLOOD UREA NITROGEN 26.2 mg/dL (7-18); CALCIUM 8.1 mg/dL (8.5-10.1); MAGNESIUM 2.1 mg/dL (1.8-2.4)
[2020-07-31 07:21] LABS: CREATININE 0.6 mg/dL (0.55-1.3)
[2020-07-31 07:22] LABS: PHOSPHOROUS 2.7 mg/dL (2.5-4.9)
[2020-07-31 07:23] LABS: BILIRUBIN,TOTAL 0.4 mg/dL (0.2-1); TOT PROT 5.2 g/dl (6.4-8.2)
[2020-07-31 07:29] LABS: POTASSIUM 4.6 mmol/L (3.5-5.1)
[2020-07-31] MEDS: levETIRAcetam 500 MG/5 ML INJECTION VIAL IVPB SCH ×2 (10:21→23:18)
[2020-07-31] MEDS: MUPIROCIN 2% TOPICAL OINTMENT FOR DECOLONIZATION NS SCH ×2 (10:27→23:18)
[2020-07-31] MEDS: PANTOPRAZOLE SODIUM 40 MG VIAL IVPUSH SCH (10:27)
[2020-07-31] MEDS ORDERED: SODIUM CHLORIDE 0.9% 1000 ML INFUS.BAG IV ONE (17:30)
[2020-07-31] MEDS: SODIUM CHLORIDE 1,000 ML IV SCH (18:21)
[2020-07-31] MEDS ORDERED: PT OWN MED DRAWER 7, Y5N ONE ×2 (19:42→23:05)
[2020-07-31] MEDS: LORazepam 2 MG/ML SDV VIAL IVPUSH PRN (19:46)
[2020-07-31] MEDS: VANCOMYCIN/WATER BAGS 1,250 MG/250 ML BAG IVPB SCH (19:46)
[2020-07-31] MEDS: CHLORHEXIDINE GLUCONATE 4% CLEANSER FOR DECOLONIZATION TP SCH (23:18)
[2020-07-31] MEDS: FAMOTIDINE 20 MG/50 ML IVPB 20 MG/50 ML MG IVPB SCH (23:18)
[2020-08-01] MEDS ORDERED: PIPERACILLIN/TAZOBACTAM 4.5 GM VIAL IVPB ONE ×3 (02:22→16:42)
[2020-08-01] MEDS ORDERED: DEXTROSE 5%-WATER 100 ML IVPB ONE ×3 (02:22→16:42)
[2020-08-01] MEDS: PIPERACILLIN/TAZOB 4.5 GM 4.5 GM in DEXTROSE 5%-WATER 100 ML IVPB SCH ×3 (03:15→17:09)
[2020-08-01] MEDS: VASOPRESSIN 40 UNITS in SODIUM CHLORIDE 98 ML IVPB SCH (03:15)
[2020-08-01 06:34] LABS: ALLENS TEST POSITIVE; ARTERIAL BLD GAS O2 SATURATION 96.2 mmHg (95-98); ARTERIAL BLOOD GAS BASE EXCESS 1.9 mmol/L (-2-2); ARTERIAL BLOOD GAS PO2 85.5 mmHg (80-100); ARTERIAL BLOOD GAS pH 7.374 (7.350-7.450)
[2020-08-01 06:36] LABS: VENT MODE A/C; VENT RATE 16
[2020-08-01 07:12] LABS: HEMATOCRIT 31.4 % (35.4-49); HEMOGLOBIN 10.1 GM/dL (11.7-16.9); LYMPH % 10.6 % (8-40); MCHC 32.1 g/dl (32.0-35.9); MEAN CELL VOLUME 90.1 fl (80-96); MEAN PLT VOLUME 9.3 fl (7.5-11.1); MONO % 8.3 % (3.8-10.2); NEUT % 78.1 % (42.8-82.8); PLATELET COUNT 348 K/MM3 (134-434); RBC 3.48 M/mm3 (4.00-5.60); RDW 15.3 % (11.9-15.9); WHITE BLOOD COUNT 14.5 K/mm3 (4.0-10.0)
[2020-08-01 07:28] LABS: POTASSIUM 4.4 mmol/L (3.5-5.1)
[2020-08-01 07:30] LABS: ALBUMIN 1.4 g/dl (3.4-5.0); CALCIUM 7.8 mg/dL (8.5-10.1)
[2020-08-01 07:31] LABS: BLOOD UREA NITROGEN 17.1 mg/dL (7-18); MAGNESIUM 2.1 mg/dL (1.8-2.4)
[2020-08-01 07:33] LABS: CREATININE 0.5 mg/dL (0.55-1.3)
[2020-08-01 07:34] LABS: PHOSPHOROUS 2.5 mg/dL (2.5-4.9)
[2020-08-01 07:35] LABS: BILIRUBIN,TOTAL 0.6 mg/dL (0.2-1); TOT PROT 5.1 g/dl (6.4-8.2)
[2020-08-01] MEDS: PROPOFOL 1,000,000 MCG/100 ML VIAL IVPB SCH (09:00)
[2020-08-01] MEDS ORDERED: PT OWN MED DRAWER 7, Y5N ONE (09:53)
[2020-08-01] MEDS: levETIRAcetam 500 MG/5 ML INJECTION VIAL IVPB SCH ×2 (10:00→21:08)
[2020-08-01] MEDS ORDERED: ENOXAPARIN NA (PORCINE) 40 MG/0.4 ML DISP.SYRIN SQ SCH (10:00)
[2020-08-01] MEDS: PANTOPRAZOLE SODIUM 40 MG VIAL IVPUSH SCH (10:14)
[2020-08-01] MEDS: MUPIROCIN 2% TOPICAL OINTMENT FOR DECOLONIZATION NS SCH ×2 (10:14→21:05)
[2020-08-01] MEDS: FAMOTIDINE 20 MG/50 ML IVPB 20 MG/50 ML MG IVPB SCH ×2 (11:16→21:08)
[2020-08-01] MEDS ORDERED: PROPOFOL 1,000,000 MCG/100 ML VIAL ONE (14:57)
[2020-08-01] MEDS ORDERED: MIDAZOLAM HCL 5 MG/1 ML Single Dose Vial ONE (14:58)
[2020-08-01] MEDS ORDERED: LORazepam 2 MG/ML SDV VIAL IVPUSH PRN (20:00)
[2020-08-01] MEDS: SODIUM CHLORIDE 1,000 ML IV SCH (21:04)
[2020-08-01] MEDS: CHLORHEXIDINE GLUCONATE 4% CLEANSER FOR DECOLONIZATION TP SCH (21:06)
[2020-08-02] MEDS ORDERED: PIPERACILLIN/TAZOBACTAM 4.5 GM VIAL IVPB ONE ×3 (01:26→16:36)
[2020-08-02] MEDS ORDERED: DEXTROSE 5%-WATER 100 ML IVPB ONE ×3 (01:26→16:36)
[2020-08-02] MEDS: PIPERACILLIN/TAZOB 4.5 GM 4.5 GM in DEXTROSE 5%-WATER 100 ML IVPB SCH ×3 (01:29→17:23)
[2020-08-02 05:47] LABS: ARTERIAL BLD GAS O2 SATURATION 96.3 mmHg (95-98); ARTERIAL BLOOD GAS PO2 87.7 mmHg (80-100); ARTERIAL BLOOD GAS pH 7.365 (7.350-7.450)
[2020-08-02 05:50] LABS: ALLENS TEST POSITIVE
[2020-08-02 05:51] LABS: VENT MODE A/C; VENT RATE 16
[2020-08-02] MEDS: VASOPRESSIN 40 UNITS in SODIUM CHLORIDE 98 ML IVPB SCH (06:32)
[2020-08-02] MEDS: SODIUM CHLORIDE 1,000 ML IV SCH (06:33)
[2020-08-02] MEDS: PROPOFOL 1,000,000 MCG/100 ML VIAL IVPB SCH ×2 (06:33→14:11)
[2020-08-02 07:46] LABS: BASO % 0.7 % (0-2.0); EOS % 2.7 % (0-4.5); HEMATOCRIT 28.9 % (35.4-49); HEMOGLOBIN 9.6 GM/dL (11.7-16.9); LYMPH % 7.7 % (8-40); MCH 29.5 pg (25.7-33.7); MCHC 33.1 g/dl (32.0-35.9); MEAN CELL VOLUME 89.2 fl (80-96); MONO % 7.4 % (3.8-10.2); NEUT % 81.5 % (42.8-82.8); PLATELET COUNT 390 K/MM3 (134-434); RBC 3.25 M/mm3 (4.00-5.60); WHITE BLOOD COUNT 13.5 K/mm3 (4.0-10.0)
[2020-08-02 08:03] LABS: POTASSIUM 3.7 mmol/L (3.5-5.1)
[2020-08-02 08:04] LABS: CALCIUM 7.7 mg/dL (8.5-10.1)
[2020-08-02 08:05] LABS: BLOOD UREA NITROGEN 12.7 mg/dL (7-18)
[2020-08-02 08:08] LABS: CREATININE 0.5 mg/dL (0.55-1.3)
[2020-08-02] MEDS: MUPIROCIN 2% TOPICAL OINTMENT FOR DECOLONIZATION NS SCH ×2 (09:05→23:58)
[2020-08-02] MEDS: PANTOPRAZOLE SODIUM 40 MG VIAL IVPUSH SCH (09:06)
[2020-08-02] MEDS: FAMOTIDINE 20 MG/50 ML IVPB 20 MG/50 ML MG IVPB SCH ×2 (09:06→23:58)
[2020-08-02] MEDS: levETIRAcetam 500 MG/5 ML INJECTION VIAL IVPB SCH ×2 (09:06→23:58)
[2020-08-02] MEDS ORDERED: MIDAZOLAM HCL 5 MG/1 ML Single Dose Vial ONE (12:09)
[2020-08-02] MEDS ORDERED: MIDAZOLAM 100 MG/100 ML MG IVPB ONE (23:06)
[2020-08-02] MEDS ORDERED: MIDAZOLAM IN 0.9 % SOD.CHLORID 100 MG/100 ML PLAST..BAG IVPB SCH (23:15)
[2020-08-02] MEDS: CHLORHEXIDINE GLUCONATE 4% CLEANSER FOR DECOLONIZATION TP SCH (23:58)
[2020-08-03] MEDS: PROPOFOL 1,000,000 MCG/100 ML VIAL IVPB SCH ×2 (02:00→09:21)
[2020-08-03] MEDS ORDERED: DEXTROSE 5%-WATER 100 ML IVPB ONE ×3 (03:30→17:20)
[2020-08-03] MEDS ORDERED: PIPERACILLIN/TAZOBACTAM 4.5 GM VIAL IVPB ONE ×3 (03:30→17:20)
[2020-08-03] MEDS: VASOPRESSIN 40 UNITS in SODIUM CHLORIDE 98 ML IVPB SCH (03:45)
[2020-08-03] MEDS: PIPERACILLIN/TAZOB 4.5 GM 4.5 GM in DEXTROSE 5%-WATER 100 ML IVPB SCH ×3 (03:45→18:14)
[2020-08-03] MEDS: SODIUM CHLORIDE 1,000 ML IV SCH (06:47)
[2020-08-03 07:25] LABS: BLOOD UREA NITROGEN 7.9 mg/dL (7-18)
[2020-08-03 07:28] LABS: CREATININE 0.2 mg/dL (0.55-1.3)
[2020-08-03 07:32] LABS: CALCIUM 5.2 mg/dL (8.5-10.1); POTASSIUM 2.8 mmol/L (3.5-5.1)
[2020-08-03 07:38] LABS: BASO % 0.8 % (0-2.0); EOS % 6.7 % (0-4.5); HEMATOCRIT 32.4 % (35.4-49); HEMOGLOBIN 10.7 GM/dL (11.7-16.9); LYMPH % 14.2 % (8-40); MCHC 33.2 g/dl (32.0-35.9); MEAN CELL VOLUME 90.5 fl (80-96); NEUT % 69.3 % (42.8-82.8); PLATELET COUNT 387 K/MM3 (134-434); RBC 3.58 M/mm3 (4.00-5.60); WHITE BLOOD COUNT 11.7 K/mm3 (4.0-10.0)
[2020-08-03] MEDS ORDERED: POTASSIUM CHLORIDE ORAL LIQUID 20 MEQ/15 ML PO ONE (08:28)
[2020-08-03 09:19] LABS: ALBUMIN 0.9 g/dl (3.4-5.0)
[2020-08-03] MEDS: FAMOTIDINE 20 MG/50 ML IVPB 20 MG/50 ML MG IVPB SCH ×2 (09:21→21:34)
[2020-08-03] MEDS: KCL 10 MEQ IVPB 10 MEQ/100 ML INFUS.BAG IVPB SCH ×3 (09:23→12:12)
[2020-08-03] MEDS: levETIRAcetam 500 MG/5 ML INJECTION VIAL IVPB SCH ×2 (09:24→21:34)
[2020-08-03] MEDS: ENOXAPARIN NA (PORCINE) 40 MG/0.4 ML DISP.SYRIN SQ SCH (09:24)
[2020-08-03] MEDS: MUPIROCIN 2% TOPICAL OINTMENT FOR DECOLONIZATION NS SCH ×2 (09:24→21:34)
[2020-08-03] MEDS: PANTOPRAZOLE SODIUM 40 MG VIAL IVPUSH SCH (09:25)
[2020-08-03] MEDS ORDERED: CALCIUM GLUCONATE 10% - 1,000 MG/10 ML VIAL IVPB ONE (13:26)
[2020-08-03] MEDS ORDERED: BENZOIN/ALOE VERA/STORAX/TOLU 58 ML BOTTLE ONE (13:54)
[2020-08-03] MEDS: CHLORHEXIDINE GLUCONATE 4% CLEANSER FOR DECOLONIZATION TP SCH (21:34)
[2020-08-03] MEDS ORDERED: MIDAZOLAM 100 MG/100 ML MG IVPB ONE (23:15)
[2020-08-04] MEDS ORDERED: PIPERACILLIN/TAZOBACTAM 4.5 GM VIAL IVPB ONE ×4 (00:12→20:27)
[2020-08-04] MEDS ORDERED: DEXTROSE 5%-WATER 100 ML IVPB ONE ×4 (00:12→20:27)
[2020-08-04] MEDS: MIDAZOLAM 100 MG/100 ML MG IVPB SCH ×2 (01:03→18:02)
[2020-08-04] MEDS: PIPERACILLIN/TAZOB 4.5 GM 4.5 GM in DEXTROSE 5%-WATER 100 ML IVPB SCH ×3 (01:06→17:51)
[2020-08-04] MEDS ORDERED: ALBUTEROL SO4 2.5/IPRATROPIUM 0.5 INH SOL 3 ML VIAL.NEB. NEB ONE (01:33)
[2020-08-04] MEDS ORDERED: SODIUM CHLORIDE 500 ML IV STA (02:03)
[2020-08-04] MEDS: VASOPRESSIN 40 UNITS in SODIUM CHLORIDE 98 ML IVPB SCH (02:40)
[2020-08-04] MEDS: PROPOFOL 1,000,000 MCG/100 ML VIAL IVPB SCH (05:00)
[2020-08-04] MEDS ORDERED: FENTANYL NS IVPB 500 MCG/100 ML BAG IVPB ONE (05:34)
[2020-08-04] MEDS: FENTANYL NS IVPB 500 MCG/100 ML BAG IVPB SCH ×3 (05:43→21:14)
[2020-08-04] MEDS: SODIUM CHLORIDE 1,000 ML IV SCH ×2 (06:30→21:32)
[2020-08-04 07:51] LABS: BASO % 0.9 % (0-2.0); EOS % 3.2 % (0-4.5); HEMATOCRIT 31.8 % (35.4-49); HEMOGLOBIN 10.5 GM/dL (11.7-16.9); LYMPH % 10.4 % (8-40); MCH 29.6 pg (25.7-33.7); MEAN CELL VOLUME 89.6 fl (80-96); NEUT % 77.5 % (42.8-82.8); PLATELET COUNT 432 K/MM3 (134-434); RBC 3.54 M/mm3 (4.00-5.60); RDW 15.3 % (11.9-15.9)
[2020-08-04 08:11] LABS: POTASSIUM 4.8 mmol/L (3.5-5.1)
[2020-08-04 08:34] LABS: CALCIUM 7.8 mg/dL (8.5-10.1)
[2020-08-04 08:35] LABS: ALBUMIN 1.3 g/dl (3.4-5.0); BLOOD UREA NITROGEN 11.5 mg/dL (7-18); MAGNESIUM 2.1 mg/dL (1.8-2.4)
[2020-08-04 08:38] LABS: CREATININE 0.6 mg/dL (0.55-1.3); PHOSPHOROUS 3.2 mg/dL (2.5-4.9)
[2020-08-04 08:40] LABS: BILIRUBIN,TOTAL 0.4 mg/dL (0.2-1); TOT PROT 5.1 g/dl (6.4-8.2)
[2020-08-04] MEDS: levETIRAcetam 500 MG/5 ML INJECTION VIAL IVPB SCH (09:19)
[2020-08-04] MEDS: ENOXAPARIN NA (PORCINE) 40 MG/0.4 ML DISP.SYRIN SQ SCH (09:19)
[2020-08-04] MEDS: FAMOTIDINE 20 MG/50 ML IVPB 20 MG/50 ML MG IVPB SCH ×2 (09:20→21:14)
[2020-08-04] MEDS: PANTOPRAZOLE SODIUM 40 MG VIAL IVPUSH SCH (09:22)
[2020-08-04] MEDS ORDERED: LACTATED RINGERS SOLUTION 1000 ML INFUS.BAG IV ONE (18:16)
[2020-08-04] MEDS: CHLORHEXIDINE GLUCONATE 4% CLEANSER FOR DECOLONIZATION TP SCH (21:14)
[2020-08-05] MEDS: MIDAZOLAM 100 MG/100 ML MG IVPB SCH (01:03)
[2020-08-05] MEDS: PIPERACILLIN/TAZOB 4.5 GM 4.5 GM in DEXTROSE 5%-WATER 100 ML IVPB SCH ×3 (01:04→17:31)
[2020-08-05] MEDS: FENTANYL NS IVPB 500 MCG/100 ML BAG IVPB SCH ×3 (02:40→22:00)
[2020-08-05] MEDS: VASOPRESSIN 40 UNITS in SODIUM CHLORIDE 98 ML IVPB SCH ×2 (02:40→17:31)
[2020-08-05 07:58] LABS: POTASSIUM 5.5 mmol/L (3.5-5.1)
[2020-08-05 08:02] LABS: BLOOD UREA NITROGEN 16.4 mg/dL (7-18)
[2020-08-05 08:04] LABS: MAGNESIUM 2.3 mg/dL (1.8-2.4)
[2020-08-05 08:06] LABS: CREATININE 0.8 mg/dL (0.55-1.3); PHOSPHOROUS 3.5 mg/dL (2.5-4.9)
[2020-08-05] MEDS ORDERED: PIPERACILLIN/TAZOBACTAM 4.5 GM VIAL IVPB ONE ×2 (10:14→17:25)
[2020-08-05] MEDS ORDERED: DEXTROSE 5%-WATER 100 ML IVPB ONE ×2 (10:14→17:26)
[2020-08-05] MEDS: ENOXAPARIN NA (PORCINE) 40 MG/0.4 ML DISP.SYRIN SQ SCH (10:22)
[2020-08-05] MEDS: FAMOTIDINE 20 MG/50 ML IVPB 20 MG/50 ML MG IVPB SCH ×2 (10:22→22:18)
[2020-08-05] MEDS: PANTOPRAZOLE SODIUM 40 MG VIAL IVPUSH SCH (10:22)
[2020-08-05] MEDS: SODIUM CHLORIDE 1,000 ML IV SCH (10:52)
[2020-08-05] MEDS: CHLORHEXIDINE GLUCONATE 4% CLEANSER FOR DECOLONIZATION TP SCH (22:18)
[2020-08-06] MEDS ORDERED: MIDAZOLAM IN 0.9 % SOD.CHLORID 100 MG/100 ML PLAST..BAG IVPB SCH (00:15)
[2020-08-06] MEDS ORDERED: ACETAMINOPHEN 1000 MG/100 ML VIAL (NON FORMULARY) IVPB ONE (01:45)
[2020-08-06] MEDS ORDERED: PIPERACILLIN/TAZOBACTAM 4.5 GM VIAL IVPB ONE ×2 (02:28→09:38)
[2020-08-06] MEDS ORDERED: DEXTROSE 5%-WATER 100 ML IVPB ONE ×2 (02:29→09:38)
[2020-08-06] MEDS: PIPERACILLIN/TAZOB 4.5 GM 4.5 GM in DEXTROSE 5%-WATER 100 ML IVPB SCH (02:30)
[2020-08-06] MEDS: PANTOPRAZOLE SODIUM 40 MG VIAL IVPUSH SCH (09:41)
[2020-08-06] MEDS: FAMOTIDINE 20 MG/50 ML IVPB 20 MG/50 ML MG IVPB SCH ×2 (09:41→22:16)
[2020-08-06] MEDS: ENOXAPARIN NA (PORCINE) 40 MG/0.4 ML DISP.SYRIN SQ SCH (09:41)
[2020-08-06] MEDS: SODIUM CHLORIDE 1,000 ML IV SCH (10:00)
[2020-08-06] MEDS: VASOPRESSIN 40 UNITS in SODIUM CHLORIDE 98 ML IVPB SCH (16:58)
[2020-08-06] MEDS: FENTANYL NS IVPB 500 MCG/100 ML BAG IVPB SCH (19:27)
[2020-08-06] MEDS: MIDAZOLAM 100 MG/100 ML MG IVPB SCH (20:35)
[2020-08-06] MEDS: CHLORHEXIDINE GLUCONATE 4% CLEANSER FOR DECOLONIZATION TP SCH (22:16)
[2020-08-07 05:38] LABS: ARTERIAL BLD GAS O2 SATURATION 94.6 mmHg (95-98); ARTERIAL BLOOD GAS BASE EXCESS -1.1 mmol/L (-2-2); ARTERIAL BLOOD GAS PO2 84.4 mmHg (80-100); ARTERIAL BLOOD GAS pH 7.256 (7.350-7.450)
[2020-08-07 05:39] LABS: ALLENS TEST POSITIVE; VENT MODE A/C; VENT RATE 16
[2020-08-07] MEDS: FENTANYL NS IVPB 500 MCG/100 ML BAG IVPB SCH ×2 (05:49→17:30)
[2020-08-07] MEDS: MIDAZOLAM 100 MG/100 ML MG IVPB SCH ×2 (05:50→17:31)
[2020-08-07 07:31] LABS: BASO % 0.6 % (0-2.0); HEMATOCRIT 30.9 % (35.4-49); HEMOGLOBIN 9.9 GM/dL (11.7-16.9); LYMPH % 6.2 % (8-40); MCH 29.2 pg (25.7-33.7); MCHC 32.1 g/dl (32.0-35.9); MEAN CELL VOLUME 91.1 fl (80-96); MEAN PLT VOLUME 9.6 fl (7.5-11.1); MONO % 7.5 % (3.8-10.2); NEUT % 84.7 % (42.8-82.8); PLATELET COUNT 439 K/MM3 (134-434); RBC 3.39 M/mm3 (4.00-5.60); RDW 15.8 % (11.9-15.9); WHITE BLOOD COUNT 14.1 K/mm3 (4.0-10.0)
[2020-08-07 07:58] LABS: POTASSIUM 5.9 mmol/L (3.5-5.1)
[2020-08-07 08:00] LABS: CALCIUM 8.3 mg/dL (8.5-10.1)
[2020-08-07 08:01] LABS: ALBUMIN 1.3 g/dl (3.4-5.0); BLOOD UREA NITROGEN 30.2 mg/dL (7-18)
[2020-08-07 08:04] LABS: CREATININE 0.7 mg/dL (0.55-1.3)
[2020-08-07 08:05] LABS: BILIRUBIN,TOTAL 0.2 mg/dL (0.2-1)
[2020-08-07] MEDS ORDERED: DEXTROSE 50%-WATER - 25 GM/50 ML VIAL IVPUSH ONE ×2 (09:18→20:02)
[2020-08-07] MEDS ORDERED: CALCIUM GLUCONATE 10% - 1,000 MG/10 ML VIAL IVPB ONE (09:18)
[2020-08-07] MEDS ORDERED: INSULIN REGULAR HUMAN 100 UNITS/ML *VIAL IVPUSH ONE ×2 (09:18→20:02)
[2020-08-07] MEDS: SODIUM CHLORIDE 1,000 ML IV SCH (09:32)
[2020-08-07] MEDS: FAMOTIDINE 20 MG/50 ML IVPB 20 MG/50 ML MG IVPB SCH ×2 (09:32→21:58)
[2020-08-07] MEDS: ENOXAPARIN NA (PORCINE) 40 MG/0.4 ML DISP.SYRIN SQ SCH (09:32)
[2020-08-07] MEDS: PANTOPRAZOLE SODIUM 40 MG VIAL IVPUSH SCH (09:33)
[2020-08-07] MEDS ORDERED: DEXTROSE 50%-WATER 25 GM/50 ML DISP.SYRIN ONE (10:46)
[2020-08-07] MEDS ORDERED: DEXTROSE 5%-WATER 100 ML IVPB ONE (16:04)
[2020-08-07] MEDS ORDERED: PIPERACILLIN/TAZOBACTAM 4.5 GM VIAL IVPB ONE (16:04)
[2020-08-07] MEDS: PIPERACILLIN/TAZOB 4.5 GM 4.5 GM in DEXTROSE 5%-WATER 100 ML IVPB SCH ×2 (16:12→17:32)
[2020-08-07 17:03] LABS: CALCIUM 8.8 mg/dL (8.5-10.1); CREATININE 0.7 mg/dL (0.55-1.3)
[2020-08-07 17:04] LABS: BLOOD UREA NITROGEN 31.3 mg/dL (7-18)
[2020-08-07] MEDS ORDERED: MIDAZOLAM 100 MG/100 ML MG IVPB ONE (17:22)
[2020-08-07 18:01] LABS: POTASSIUM 5.7 mmol/L (3.5-5.1)
[2020-08-07] MEDS ORDERED: CALCIUM GLUCONATE 10% - 1,000 MG/10 ML VIAL IVPUSH ONE (20:02)
[2020-08-07] MEDS ORDERED: DEXTROSE 50%-WATER - 25 GM/50 ML VIAL ONE (20:28)
[2020-08-07] MEDS: CHLORHEXIDINE GLUCONATE 4% CLEANSER FOR DECOLONIZATION TP SCH (21:58)
[2020-08-08] MEDS ORDERED: PIPERACILLIN/TAZOBACTAM 4.5 GM VIAL IVPB ONE ×3 (01:59→16:13)
[2020-08-08] MEDS ORDERED: DEXTROSE 5%-WATER 100 ML IVPB ONE ×3 (01:59→16:13)
[2020-08-08] MEDS: PIPERACILLIN/TAZOB 4.5 GM 4.5 GM in DEXTROSE 5%-WATER 100 ML IVPB SCH ×3 (02:01→17:18)
[2020-08-08] MEDS ORDERED: MIDAZOLAM 100 MG/100 ML MG IVPB ONE ×3 (03:18→19:58)
[2020-08-08] MEDS: MIDAZOLAM 100 MG/100 ML MG IVPB SCH ×2 (03:30→20:00)
[2020-08-08 07:04] LABS: BASO % 0.6 % (0-2.0); HEMATOCRIT 32.1 % (35.4-49); MCH 28.6 pg (25.7-33.7); MCHC 31.2 g/dl (32.0-35.9); MEAN CELL VOLUME 91.8 fl (80-96); MEAN PLT VOLUME 9.9 fl (7.5-11.1); MONO % 8.8 % (3.8-10.2); NEUT % 83.6 % (42.8-82.8); PLATELET COUNT 480 K/MM3 (134-434); RBC 3.49 M/mm3 (4.00-5.60); RDW 15.7 % (11.9-15.9); WHITE BLOOD COUNT 13.5 K/mm3 (4.0-10.0)
[2020-08-08 07:47] LABS: POTASSIUM 5.8 mmol/L (3.5-5.1)
[2020-08-08 08:16] LABS: CALCIUM 8.8 mg/dL (8.5-10.1)
[2020-08-08 08:17] LABS: ALBUMIN 1.3 g/dl (3.4-5.0); BLOOD UREA NITROGEN 31.3 mg/dL (7-18); MAGNESIUM 2.7 mg/dL (1.8-2.4)
[2020-08-08 08:20] LABS: CREATININE 0.7 mg/dL (0.55-1.3); PHOSPHOROUS 2.4 mg/dL (2.5-4.9)
[2020-08-08 08:21] LABS: BILIRUBIN,TOTAL 0.6 mg/dL (0.2-1)
[2020-08-08 08:22] LABS: TOT PROT 6.2 g/dl (6.4-8.2)
[2020-08-08] MEDS ORDERED: INSULIN REGULAR HUMAN 100 UNITS/ML *VIAL IVPUSH ONE ×2 (08:28→23:17)
[2020-08-08] MEDS ORDERED: DEXTROSE 50%-WATER - 25 GM/50 ML VIAL IVPUSH ONE ×2 (08:28→23:17)
[2020-08-08] MEDS ORDERED: CALCIUM GLUCONATE 10% - 1,000 MG/10 ML VIAL IVPB ONE ×2 (08:29→23:17)
[2020-08-08] MEDS: VASOPRESSIN 40 UNITS in SODIUM CHLORIDE 98 ML IVPB SCH (09:44)
[2020-08-08] MEDS ORDERED: DEXTROSE 50%-WATER 25 GM/50 ML DISP.SYRIN ONE (09:48)
[2020-08-08] MEDS: SODIUM CHLORIDE 1,000 ML IV SCH ×2 (09:53→09:54)
[2020-08-08] MEDS: FAMOTIDINE 20 MG/50 ML IVPB 20 MG/50 ML MG IVPB SCH ×2 (09:55→22:32)
[2020-08-08] MEDS: ENOXAPARIN NA (PORCINE) 40 MG/0.4 ML DISP.SYRIN SQ SCH (09:55)
[2020-08-08] MEDS: PANTOPRAZOLE SODIUM 40 MG VIAL IVPUSH SCH (09:56)
[2020-08-08] MEDS: SODIUM ZIRCONIUM CYCLOSILICATE (LOKELMA) 5 GM PACKET PO SCH ×2 (14:10→22:32)
[2020-08-08 15:21] VITALS: BMI 32.8
[2020-08-08] MEDS: FENTANYL NS IVPB 500 MCG/100 ML BAG IVPB SCH (18:30)
[2020-08-08] MEDS: CHLORHEXIDINE GLUCONATE 4% CLEANSER FOR DECOLONIZATION TP SCH (22:32)
[2020-08-08] MEDS ORDERED: DEXTROSE 50%-WATER - 25 GM/50 ML VIAL ONE (23:30)
[2020-08-09] MEDS ORDERED: DEXTROSE 5%-WATER 100 ML IVPB ONE ×3 (02:17→17:11)
[2020-08-09] MEDS ORDERED: PIPERACILLIN/TAZOBACTAM 4.5 GM VIAL IVPB ONE ×3 (02:17→17:11)
[2020-08-09] MEDS: PIPERACILLIN/TAZOB 4.5 GM 4.5 GM in DEXTROSE 5%-WATER 100 ML IVPB SCH ×3 (02:24→17:25)
[2020-08-09] MEDS: FENTANYL NS IVPB 500 MCG/100 ML BAG IVPB SCH ×3 (03:54→14:40)
[2020-08-09 07:15] LABS: BASO % 0.9 % (0-2.0); EOS % 0.7 % (0-4.5); HEMATOCRIT 31.6 % (35.4-49); LYMPH % 5.5 % (8-40); MCH 29.4 pg (25.7-33.7); MCHC 31.7 g/dl (32.0-35.9); MEAN CELL VOLUME 92.8 fl (80-96); MEAN PLT VOLUME 9.3 fl (7.5-11.1); MONO % 9.8 % (3.8-10.2); NEUT % 83.1 % (42.8-82.8); PLATELET COUNT 450 K/MM3 (134-434); RBC 3.41 M/mm3 (4.00-5.60); RDW 16.3 % (11.9-15.9); WHITE BLOOD COUNT 13.1 K/mm3 (4.0-10.0)
[2020-08-09 07:31] LABS: POTASSIUM 5.9 mmol/L (3.5-5.1)
[2020-08-09 07:40] LABS: ALBUMIN 1.2 g/dl (3.4-5.0); BLOOD UREA NITROGEN 42.5 mg/dL (7-18); CALCIUM 8.8 mg/dL (8.5-10.1)
[2020-08-09 07:41] LABS: MAGNESIUM 2.7 mg/dL (1.8-2.4)
[2020-08-09 07:43] LABS: PHOSPHOROUS 3.1 mg/dL (2.5-4.9)
[2020-08-09 07:45] LABS: TOT PROT 5.9 g/dl (6.4-8.2)
[2020-08-09 07:46] LABS: BILIRUBIN,TOTAL 0.2 mg/dL (0.2-1)
[2020-08-09] MEDS ORDERED: PT OWN MED DRAWER 7, Y5N ONE (09:18)
[2020-08-09] MEDS ORDERED: CALCIUM GLUCONATE 10% - 1,000 MG/10 ML VIAL IVPUSH ONE (09:54)
[2020-08-09] MEDS: SODIUM ZIRCONIUM CYCLOSILICATE (LOKELMA) 5 GM PACKET PO SCH ×2 (10:05→21:56)
[2020-08-09] MEDS: ENOXAPARIN NA (PORCINE) 40 MG/0.4 ML DISP.SYRIN SQ SCH (10:06)
[2020-08-09] MEDS: FAMOTIDINE 20 MG/50 ML IVPB 20 MG/50 ML MG IVPB SCH ×2 (10:09→21:56)
[2020-08-09] MEDS: PANTOPRAZOLE SODIUM 40 MG VIAL IVPUSH SCH (10:09)
[2020-08-09] MEDS ORDERED: DEXTROSE 50%-WATER 25 GM/50 ML DISP.SYRIN ONE (10:17)
[2020-08-09] MEDS: DEXTROSE 50%-WATER - 25 GM/50 ML VIAL IVPUSH ONE ×2 (10:23→11:55)
[2020-08-09] MEDS: INSULIN REGULAR HUMAN 100 UNITS/ML *VIAL IVPUSH ONE ×2 (10:24→11:55)
[2020-08-09] MEDS ORDERED: SODIUM CHLORIDE 0.45% 1,000 ML IV SCH (11:00)
[2020-08-09] MEDS: FUROSEMIDE 40 MG/4 ML INJECTABLE VIAL IVPUSH SCH ×2 (11:12→13:35)
[2020-08-09] MEDS: SODIUM CHLORIDE 1,000 ML IV SCH (11:14)
[2020-08-09] MEDS ORDERED: METOPROLOL TARTRATE 5 MG/5 ML VIAL ONE (12:21)
[2020-08-09] MEDS ORDERED: METOPROLOL TARTRATE 5 MG/5 ML VIAL IVPUSH PRN (12:24)
[2020-08-09] MEDS ORDERED: ACETAMINOPHEN 1000 MG/100 ML VIAL (NON FORMULARY) IVPB ONE ×2 (12:38→18:28)
[2020-08-09] MEDS ORDERED: MIDAZOLAM 100 MG/100 ML MG IVPB ONE (14:34)
[2020-08-09] MEDS: MIDAZOLAM 100 MG/100 ML MG IVPB SCH (14:40)
[2020-08-10] MEDS ORDERED: IBUPROFEN 800 MG/8 ML IJ IVPB ONE (00:33)
[2020-08-10] MEDS ORDERED: MIDAZOLAM 100 MG/100 ML MG IVPB ONE (00:34)
[2020-08-10] MEDS ORDERED: ACETAMINOPHEN 1000 MG/100 ML VIAL (NON FORMULARY) IVPB PRN (00:41)
[2020-08-10] MEDS ORDERED: ACETAMINOPHEN 1000 MG/100 ML VIAL (NON FORMULARY) IVPB ONE (00:41)
[2020-08-10] MEDS ORDERED: DEXTROSE 5%-WATER 100 ML IVPB ONE ×2 (01:55→09:30)
[2020-08-10] MEDS ORDERED: PIPERACILLIN/TAZOBACTAM 4.5 GM VIAL IVPB ONE ×2 (01:55→09:30)
[2020-08-10] MEDS: PIPERACILLIN/TAZOB 4.5 GM 4.5 GM in DEXTROSE 5%-WATER 100 ML IVPB SCH ×2 (01:58→09:34)
[2020-08-10] MEDS: MIDAZOLAM 100 MG/100 ML MG IVPB SCH (01:58)
[2020-08-10] MEDS: FENTANYL NS IVPB 500 MCG/100 ML BAG IVPB SCH (01:58)
[2020-08-10] MEDS: FUROSEMIDE 40 MG/4 ML INJECTABLE VIAL IVPUSH SCH (06:51)
[2020-08-10 08:17] VITALS: BP 84/67; TEMP 101.2
[2020-08-10 08:53] VITALS: PULSE 123
[2020-08-10] MEDS: FAMOTIDINE 20 MG/50 ML IVPB 20 MG/50 ML MG IVPB SCH (09:33)
[2020-08-10] MEDS: SODIUM ZIRCONIUM CYCLOSILICATE (LOKELMA) 5 GM PACKET PO SCH (09:34)
[2020-08-10] MEDS ORDERED: CALCIUM GLUCONATE 10% - 1,000 MG/10 ML VIAL ONE (10:46)
[2020-08-10 11:06] LABS: BASO % 0.9 % (0-2.0); HEMATOCRIT 33.4 % (35.4-49); LYMPH % 4.2 % (8-40); MCH 28.9 pg (25.7-33.7); MCHC 30.1 g/dl (32.0-35.9); MEAN CELL VOLUME 96.2 fl (80-96); MEAN PLT VOLUME 10.5 fl (7.5-11.1); MONO % 7.5 % (3.8-10.2); NEUT % 87.4 % (42.8-82.8); PLATELET COUNT 440 K/MM3 (134-434); RBC 3.47 M/mm3 (4.00-5.60); RDW 16.9 % (11.9-15.9); WHITE BLOOD COUNT 15.3 K/mm3 (4.0-10.0)
[2020-08-10 11:52] LABS: CALCIUM 8.9 mg/dL (8.5-10.1)
[2020-08-10 11:53] LABS: ALBUMIN 1.3 g/dl (3.4-5.0); BLOOD UREA NITROGEN 61.7 mg/dL (7-18)
[2020-08-10 11:54] LABS: MAGNESIUM 3.1 mg/dL (1.8-2.4)
[2020-08-10 11:56] LABS: CREATININE 1.7 mg/dL (0.55-1.3)
[2020-08-10 11:57] LABS: BILIRUBIN,TOTAL 0.3 mg/dL (0.2-1)
[2020-08-10 12:06] LABS: POTASSIUM 6.3 mmol/L (3.5-5.1)
== END 2020-08-10 10:59 | disposition expired | DRG 710 ==
LOC: JER 18:21 → JERBED 22:23 → JICU 23:52
PROVIDERS: ADMIT Internal Medicine; ATTEND Internal Medicine
PROC: 0CHY7BZ Insertion of Airway into Mouth and Throat, Via Natural or Artificial Opening (ICD-10-PCS; principal; 2020-07-29)
PROC: 5A1955Z Respiratory Ventilation, Greater than 96 Consecutive Hours (ICD-10-PCS; 2020-07-29)
PROC: 0DH673Z Insertion of Infusion Device into Stomach, Via Natural or Artificial Opening (ICD-10-PCS; 2020-07-29)
PROC: 0W993ZX Drainage of Right Pleural Cavity, Percutaneous Approach, Diagnostic (ICD-10-PCS; 2020-07-30)
PROC: 0DH67UZ Insertion of Feeding Device into Stomach, Via Natural or Artificial Opening (ICD-10-PCS; 2020-08-01)
PROC: 3E0G76Z Introduction of Nutritional Substance into Upper GI, Via Natural or Artificial Opening (ICD-10-PCS; 2020-08-01)
PROC: 0BD38ZX Extraction of Right Main Bronchus, Via Natural or Artificial Opening Endoscopic, Diagnostic (ICD-10-PCS; 2020-08-02)
PROC: 0BDC8ZX Extraction of Right Upper Lung Lobe, Via Natural or Artificial Opening Endoscopic, Diagnostic (ICD-10-PCS; 2020-08-02)
PROC: 0B948ZX Drainage of Right Upper Lobe Bronchus, Via Natural or Artificial Opening Endoscopic, Diagnostic (ICD-10-PCS; 2020-08-02)
PROC: 0B9C8ZX Drainage of Right Upper Lung Lobe, Via Natural or Artificial Opening Endoscopic, Diagnostic (ICD-10-PCS; 2020-08-02)
PROC: 0BBC8ZX Excision of Right Upper Lung Lobe, Via Natural or Artificial Opening Endoscopic, Diagnostic (ICD-10-PCS; 2020-08-02)
PROC: 05HN33Z Insertion of Infusion Device into Left Internal Jugular Vein, Percutaneous Approach (ICD-10-PCS; 2020-08-10)
PROC: B544ZZA Ultrasonography of Left Jugular Veins, Guidance (ICD-10-PCS; 2020-08-10)
DX: A41.89 Other specified sepsis (principal); R65.20 Severe sepsis without septic shock; J96.01 Acute respiratory failure with hypoxia; J90 Pleural effusion, not elsewhere classified; I24.8 Other forms of acute ischemic heart disease; C34.11 Malignant neoplasm of upper lobe, right bronchus or lung; C79.51 Secondary malignant neoplasm of bone; J69.0 Pneumonitis due to inhalation of food and vomit; F20.9 Schizophrenia, unspecified; F31.9 Bipolar disorder, unspecified; E11.9 Type 2 diabetes mellitus without complications; M06.9 Rheumatoid arthritis, unspecified; H54.8 Legal blindness, as defined in USA; H90.5 Unspecified sensorineural hearing loss; E87.2 Acidosis; G93.6 Cerebral edema; I61.9 Nontraumatic intracerebral hemorrhage, unspecified; N17.9 Acute kidney failure, unspecified; I46.9 Cardiac arrest, cause unspecified; E87.5 Hyperkalemia; R41.82 Altered mental status, unspecified; F41.9 Anxiety disorder, unspecified; E11.621 Type 2 diabetes mellitus with foot ulcer; L97.518 Non-pressure chronic ulcer of other part of right foot with other specified severity; Z86.73 Personal history of transient ischemic attack (TIA), and cerebral infarction without residual deficits; Z89.422 Acquired absence of other left toe(s); Z89.421 Acquired absence of other right toe(s)
CPT/HCPCS: 31500; 36415; 36600; 70450-TC; 71045-TC-FY; 71250-TC; 80048; 80053; 81003; 82040; 82248; 82436; 82533; 82550; 82728; 82803; 82945; 82962; 83605; 83615; 83735; 83930; 83935; 83986; 84100; 84132; 84133; 84157; 84300; 84439; 84443; 84478; 84484; 85025; 85379; 85610; 85730; 86140; 86480; 87040; 87070; 87075; 87077; 87086; 87102; 87116; 87186; 87205; 87206; 87210; 87556; 87804; 87899; 88104; 88108; 88305-TC; 88341-TC; 93005; 93010; 94002; 94640; 99291; C9803; J0131; U0003